=== PATIENT | female | born 1940 | race Caucasian/White ===

== ENCOUNTER 2018-10-23 11:15 | Inpatient (IN) | payer OTHER ==
[~2018-10-23] VITALS: Ht 149.9 cm; Wt 41.3 kg
[~2018-10-23 11:15] MED LIST: ALLO100T21 PO; AMLODIPIN; CARV25TA PO; DULO60EC PO; LANTUS SUBQ; LORATIDINE; MOME0.051; MONT10TA35 PO; OMEP20EC9 PO; OMEPRAZOLE; [UNRECOGNIZED DRUG - CODE] PO
[2018-10-23 11:24] VITALS: BP 187/67
--- NOTE | 2018-10-23 13:21 | NUR ---
pt ambulated to er bed 04
--- NOTE | 2018-10-23 13:35 | NUR ---
PATIENT PRESENTS TO ED WITH C/O WEAKNESS AND SNCOPE, REFERRALED BY PCP, PT IS AAOX4, NO S/S OF DISTRESS, DISMINISHED LUNG SOUNDS, STATED TINGLING CHEST PAIN COME AND GOES 2/10,ELEVATED BP NOTED, ABDOMEN SORE2/10, HAD N/V/D YESTERDAY, POOR APETITE, INCONTINENT B&B'S, ABLE TO MOVE ALL EXTREMITIES, SLIGHT WEAKNESS NOTED, SKIN IS WARM AND DRY TO TOUGH, OPEN WOUND TO RIGHT LOWER LEG NOTED. HX OF HTN, CHF, DM. PATIENT POSITIONED FOR COMFORT; HOB ELEVATED; BEDRAILS UP X2; BED DOWN. ER MD MADE AWARE OF PT STATUS.
--- NOTE | 2018-10-23 13:37 | NUR ---
Patient being evaluated by DR. DAHL at bedside.
[2018-10-23] MEDS ORDERED: NACL 0.9% 1,000 ML IV SCH (13:46)
[2018-10-23] MEDS ORDERED: ONDANSETRON 4 MG/2 ML VIAL IVP ONE (13:50)
--- NOTE | 2018-10-23 13:55 | NUR ---
PT IS TAKEN TO CT.
--- NOTE | 2018-10-23 14:20 | NUR ---
IV INSERTED TO LEFT AC, NS BOLUS STARTED.
--- NOTE | 2018-10-23 14:28 | NUR ---
US AT BEDSIDE
[2018-10-23 14:33] LABS: APPEARANCE,URINE CLEAR (CLEAR); BILIRUBIN,URINE NEGATIVE (NEGATIVE); BLOOD, URINE TRACE-I (NEGATIVE); COLOR,URINE YELLOW (YELLOW); LEUKOCYTE ESTERASE ,URINE 1+ (NEGATIVE); NITRITE, URINE NEGATIVE (NEGATIVE); UGLUCOSE NEGATIVE (NEGATIVE)
[2018-10-23 14:35] LABS: BASOPHILS # (AUTO) 0.1 K/uL (0.00-0.22); BASOPHILS % (AUTO) 1.1 % (0.0-2.0); EOSINOPHILS # (AUTO) 0.2 K/uL (0-0.4); EOSINOPHILS % (AUTO) 4.4 % (0.0-4.0); HEMATOCRIT 30.4 % (36-48); HEMOGLOBIN 10.3 g/dL (12.0-16.0); LYMPHOCYTES # (AUTO) 0.8 K/uL (2.5-16.5); LYMPHOCYTES % (AUTO) 15.4 % (20.5-51.1); MEAN CORPUSCULAR HEMOGLOBIN 32 pg (27-31); MEAN CORPUSCULAR HGB CONC 34 g/dL (33-37); MONOCYTES # (AUTO) 0.3 K/uL (0.8-1.0); MONOCYTES % (AUTO) 6.8 % (1.7-9.3); NEUTROPHILS # (AUTO) 3.7 K/uL (1.8-7.7); NEUTROPHILS % (AUTO) 72.3 % (42.2-75.2); PLATELET COUNT (AUTO) 199 K/uL (140-450); RED CELL DISTRIBUTION WIDTH 13.3 % (11.6-13.7); WHITE BLOOD COUNT (AUTO) 5.1 K/uL (4.8-10.8)
[2018-10-23 14:41] LABS: WBC,URINE 20-60 /HPF (0-5)
--- NOTE | 2018-10-23 15:00 | NUR ---
PT IS RESTING IN BED, IV BOLUS COMPLETED, NO S/S OF DISTRESS, BP 190/64, DR. DAHL MADE AWARE.
[2018-10-23 15:09] LABS: ALBUMIN 3.4 g/dL (3.4-5.0); AMYLASE 48 U/L (25-115); ANION GAP 15.1 (8-16); ASPARTATE AMINOTRANSFERASE 18 U/L (15-37); CARBON DIOXIDE 23.1 mmol/L (21-32); CHLORIDE 105 mmol/L (98-107); CREATININE 1.8 mg/dL (0.6-1.3); GLUCOSE 116 mg/dL (74-106); LIPASE 214 U/L (73-393); MAGNESIUM 2.1 mg/dL (1.8-2.4); POTASSIUM 4.2 mmol/L (3.5-5.1); SODIUM SERUM 139 mmol/L (136-145); TOTAL BILIRUBIN 0.3 mg/dL (0.0-1.0)
[2018-10-23 15:14] LABS: PROTHROMBIN TIME 9.2 secs (10.8-13.4)
[2018-10-23 15:22] LABS: UREA NITROGEN, BLOOD 32 mg/dL (7-18)
[2018-10-23] MEDS ORDERED: cloNIDine 0.1 MG TAB PO ONE (15:50)
--- NOTE | 2018-10-23 16:13 | NUR ---
BP MEDICATION GIVEN, WILL CONTINUE TO MONITOR.
--- NOTE | 2018-10-23 16:30 | NUR ---
DR. DAHL EXPLAINED THE FINDING TO PT, AND NEED TO ADMIT TO HOSPITAL, PT VERBALIZED UNDERSTANDING AND AGREED.
--- NOTE | 2018-10-23 17:00 | NUR ---
PT IS RESTING IN BED, NO S/S OF DISTRESS, DENIES PAIN. STATED FEELING BETTER.
[2018-10-23] MEDS ORDERED: LABETALOL 100 MG/20 ML VIAL IVP ONE (17:05)
--- NOTE | 2018-10-23 17:15 | NUR ---
PT'S BP 207/65 ONE HOUR AFTER CLONIDINE GIVEN, DR. DAHL MADE AWARE, WILL FOLLOW UP WITH NEW ORDERS.
[2018-10-23] MEDS ORDERED: DEXTROSE 50% 50 ML SYR IVP PRN (17:50)
[2018-10-23] MEDS ORDERED: ONDANSETRON 4 MG/2 ML VIAL IVP PRN (17:50)
[2018-10-23] MEDS ORDERED: cloNIDine 0.1 MG TAB PO PRN (17:55)
[2018-10-23] MEDS ORDERED: amLODIPine 5 MG TAB PO SCH (18:00)
--- NOTE | 2018-10-23 18:21 | NUR ---
Pt transferred to Tele via BED WITH SOY VASQUEZ.
--- NOTE | 2018-10-23 18:25 | NUR ---
Pt transferred to Tele ROOM 124B via [facility], [facility] ALL BELONGINGS GOES WITH PT, PT IS IN STABEL CONDITION AT THIS TIME. .
--- NOTE | 2018-10-23 18:25 | NUR ---
RECEIVED BEDSIDE REPORT FROM ER NURSE. PATIENT IS AWAKE, ALERT AND ORIENTEDX4. NO SIGNS OF DISTRESS ON RA. SKIN HAS R ARM SKIN TEAR AND R LEG ABRASION. FALL RISK PROTOCOL IN PLACE D/T DX SYNCOPE AND HTN. VITALS ARE B/P 136/49 HR 63 98% RA 98.2 TEMP AND RR 16. MRSA NARES SWAB DONE. PATIENT IS AMBULATORY W ASSIST. PATIENT STATES SHE USES A DIAPER AT HOME. IV ON L AC 20G SL. CLEAN, DRY AND INTACT. TELE MONITOR IN PLACE. BED IN LOW POSITION. CALL LIGHT WITHIN REACH. WILL CONTINUE TO MONITOR THE PATIENT
--- NOTE | 2018-10-23 19:05 | NUR ---
GAVE BEDSIDE REPORT TO PRESS TENDER NURSE. PATIENT ENDORSED IN STABLE CONDITION. TOOK PHOTOS OF WOUNDS R ARM SKIN TEAR, L LEG ABRASION, TOLD MP TO PRINT FORMS ON DEMAND. Addendum: 10/23/18 at 1950 by Janis Rowell RN ENDORSED TO KISSSOURAV THAT I DID NOT ADMINISTER THE ALEX AMLODIPINE AT 1800. TOLD HER TO CALL DR HLOBROOK IF HE WANTS TO GIVE IT OR HOLD, B/P MAY DROP TOO LOW. ALSO TOLD HER TO Ask about lovenox and heparin order and lantus, pharmacy to question the dosing
[2018-10-23 19:30] VITALS: BP 101/53
--- NOTE | 2018-10-23 19:30 | NUR ---
RECEIVED PT IN STABLE CONDITION FROM SOY ESCOTO PT IS AWAKE,ALERT AND ORIENTED X4. ON TELE MONITOR . WITH NO C/O ANY DISCOMFORT NOR PAIN NOTED. ORIENTED TO HOSPITAL ROUTINES. CALL LIGHT PLACED WITHIN EASY REACH. BED ON LOW POSITION. BED ALARM ON. SIDE RAILS UP X2. PLAN OF CARE DISCUSSED AND VERBALIZED UNDERSTANDING. HL ON LT AC #20/ CLEAR AND PATENT. POSITIONED COMFORTABLY IN BED. WILL FOLLOW UP ADMIT ORDERS.WILL CONTINUE TO MONITOR.
[2018-10-23] MEDS: CARVEDILOL 12.5 MG TAB PO SCH (21:00)
[2018-10-23] MEDS ORDERED: INSULIN LANTUS 100 UNITS/ML 10 ML VIAL SUBQ SCH (21:00)
--- NOTE | 2018-10-23 21:09 | NUR ---
PAGED DR. HOLBROOK TO CLARIFY LOVENOX AND HEPARIN SUBQ ORDER. CALLED BACK AND HE SAID TO DISCONTINUE LOVENOX. ALSO HE MADE AWARE THAT PT HASN'T BEEN TAKING LANTUS AT HOME. BS TONIGHT IS 182. HE SAID JUST HOLD LANTUS TONIGHT BUT GIVE THE COVERAGE.
[2018-10-23] MEDS: BLOOD GLUCOSE MONITORING 1 DEV DEV FS SCH (21:49)
[2018-10-23] MEDS: INSULIN LISPRO SLIDING SCALE 100 UNITS/ML VIAL SUBQ PRN (21:50)
--- NOTE | 2018-10-23 23:00 | NUR ---
PT IS ASLEEP. NO S/S OF ANY DISCOMFORT NOTED.
[2018-10-23 23:12] LABS: CREATINE KINASE MB 2.1 ng/mL (0-3.6)
[2018-10-24] VITALS: BP 134/39
[2018-10-24 00:02] VITALS: BP 119/37
[2018-10-24 00:04] VITALS: BP 142/73
--- NOTE | 2018-10-24 00:04 | NUR ---
VITAL SIGNS TAKEN. NO DIZZINESS NOTED. NO DISCOMFORT AT THIS TIME. CALL LIGHT PLACED WITHIN REACH.
--- NOTE | 2018-10-24 02:00 | NUR ---
MADE ROUNDS. PT ASLEEP. NO S/S OF ANY DISCOMFORT NOR PAIN NOTED.BED ALARM STILL ON FOR SAFETY.
[2018-10-24 04:10] VITALS: BP 146/44
--- NOTE | 2018-10-24 04:30 | NUR ---
ASSISTED UP TO THE BATHROOM. NO DIZZINESS NOTED.
[2018-10-24] MEDS ORDERED: PANTOPRAZOLE 40 MG TABEC PO SCH (06:30)
[2018-10-24] MEDS: BLOOD GLUCOSE MONITORING 1 DEV DEV FS SCH ×2 (06:32→11:58)
--- NOTE | 2018-10-24 06:32 | NUR ---
BLOOD SUGAR THIS AM RESULT 139. NO INSULIN NEEDED.
[2018-10-24 06:50] LABS: BASOPHILS % (AUTO) 1.1 % (0.0-2.0); EOSINOPHILS # (AUTO) 0.2 K/uL (0-0.4); EOSINOPHILS % (AUTO) 4.7 % (0.0-4.0); HEMATOCRIT 27.4 % (36-48); HEMOGLOBIN 9.5 g/dL (12.0-16.0); LYMPHOCYTES # (AUTO) 0.6 K/uL (2.5-16.5); LYMPHOCYTES % (AUTO) 13.6 % (20.5-51.1); MEAN CORPUSCULAR HEMOGLOBIN 33 pg (27-31); MEAN CORPUSCULAR HGB CONC 35 g/dL (33-37); MEAN CORPUSCULAR VOLUME 94.9 fL (80-94); MONOCYTES # (AUTO) 0.3 K/uL (0.8-1.0); MONOCYTES % (AUTO) 7.7 % (1.7-9.3); NEUTROPHILS # (AUTO) 3.1 K/uL (1.8-7.7); NEUTROPHILS % (AUTO) 72.9 % (42.2-75.2); PLATELET COUNT (AUTO) 183 K/uL (140-450); RED BLOOD CELL COUNT(AUTO) 2.88 MIL/uL (4.20-5.40); RED CELL DISTRIBUTION WIDTH 13.2 % (11.6-13.7); WHITE BLOOD COUNT (AUTO) 4.3 K/uL (4.8-10.8)
[2018-10-24 07:30] LABS: ALBUMIN 2.7 g/dL (3.4-5.0); ANION GAP 12.3 (8-16); ASPARTATE AMINOTRANSFERASE 18 U/L (15-37); CARBON DIOXIDE 23.2 mmol/L (21-32); CHLORIDE 107 mmol/L (98-107); CREATININE 1.8 mg/dL (0.6-1.3); GLUCOSE 134 mg/dL (74-106); POTASSIUM 4.5 mmol/L (3.5-5.1); SODIUM SERUM 138 mmol/L (136-145); TOTAL BILIRUBIN 0.3 mg/dL (0.0-1.0); UREA NITROGEN, BLOOD 29 mg/dL (7-18)
--- NOTE | 2018-10-24 07:38 | NUR ---
ENDORSED PT IN STABLE CONDITION TO AM NURSE.
--- NOTE | 2018-10-24 07:39 | NUR ---
Received report from pm nurse Dinora. Pt resting in bed, aaox4, verbally responsive, no c/o discomfort, no signs of distress. Call light within reach.
[2018-10-24 07:42] LABS: CREATINE KINASE MB 1.4 ng/mL (0-3.6)
[2018-10-24 08:00] VITALS: BP 166/54
--- NOTE | 2018-10-24 08:50 | NUR ---
PATIENT HAS BEEN SCREENED AND CATEGORIZED HIGH NUTRITION RISK. PATIENT WILL BE SEEN WITHIN 1-2 DAYS OF ADMISSION. 10/24/18-10/25/[address]
[2018-10-24] MEDS ORDERED: MONTELUKAST SODIUM 10 MG TAB PO SCH (09:00)
[2018-10-24] MEDS ORDERED: ASPIRIN 81 MG TAB.CHEW PO SCH (09:00)
[2018-10-24] MEDS ORDERED: ALLOPURINOL 100 MG TAB PO SCH (09:00)
[2018-10-24] MEDS ORDERED: DULoxetine 30 MG CAPDR PO SCH (09:00)
[2018-10-24] MEDS ORDERED: ENOXAPARIN 30 MG/0.3 ML SYR SUBQ SCH (09:00)
[2018-10-24] MEDS ORDERED: amLODIPine 5 MG TAB PO SCH (09:00)
[2018-10-24] MEDS: CARVEDILOL 12.5 MG TAB PO SCH (09:28)
[2018-10-24] MEDS ORDERED: AMLO5TAB PO (09:46)
[2018-10-24] MEDS ORDERED: SIMV20TA1 PO (09:46)
[2018-10-24] MEDS: INSULIN LISPRO SLIDING SCALE 100 UNITS/ML VIAL SUBQ PRN (12:18)
[2018-10-24] MEDS ORDERED: PNEUMOCOCCAL VACCINE 23 MCG/0.5 ML VIAL IMVAC SCH (13:35)
[2018-10-24 14:07] VITALS: BP 138/46
--- NOTE | 2018-10-24 14:30 | NUR ---
All written & verbal instructions provided to pt. Able to verbalize understanding. Pt c/o feeling jittery. Fingerstick glucose = 47g/dl. 2 boxes of orange juice given po. Will recheck.
--- NOTE | 2018-10-24 15:00 | NUR ---
Fingerstick glucose rechecked = 104. Pt states she feels fine & ready to go home. Left ac IV discontinued. Pt able to dress to her personal clothes independently.
--- NOTE | 2018-10-24 15:10 | NUR ---
Pt discharged at this time to home. Able to amb off unit with steady gait, no c/o discomfort, aaox4 with good safety judgment. Pt left by herself via private car.
[2018-10-25] MEDS ORDERED: ATORVASTATIN 20 MG TAB PO SCH (09:00)
== END 2018-10-24 15:10 | disposition home or self-care (01) | DRG 74 ==
LOC: MED 11:15 → MTU 17:52
PROVIDERS: ADMIT Internal Medicine; ATTEND Internal Medicine
PROC: 3E0234Z Introduction of Serum, Toxoid and Vaccine into Muscle, Percutaneous Approach (ICD-10-PCS; principal; 2018-10-24)
DX: G90.8 Other disorders of autonomic nervous system (principal); I13.0 Hypertensive heart and chronic kidney disease with heart failure and stage 1 through stage 4 chronic kidney disease, or unspecified chronic kidney disease; I65.23 Occlusion and stenosis of bilateral carotid arteries; J45.909 Unspecified asthma, uncomplicated; I50.9 Heart failure, unspecified; E11.65 Type 2 diabetes mellitus with hyperglycemia; I35.1 Nonrheumatic aortic (valve) insufficiency; I25.10 Atherosclerotic heart disease of native coronary artery without angina pectoris; N18.9 Chronic kidney disease, unspecified; E11.22 Type 2 diabetes mellitus with diabetic chronic kidney disease; F17.210 Nicotine dependence, cigarettes, uncomplicated; Z88.5 Allergy status to narcotic agent; Z88.8 Allergy status to other drugs, medicaments and biological substances; Z91.041 Radiographic dye allergy status; Z79.4 Long term (current) use of insulin; Z79.899 Other long term (current) drug therapy; Z90.49 Acquired absence of other specified parts of digestive tract; Z95.1 Presence of aortocoronary bypass graft; Z98.42 Cataract extraction status, left eye; Z98.41 Cataract extraction status, right eye; I25.2 Old myocardial infarction; Z23 Encounter for immunization
CPT/HCPCS: 36415; 70450; 71045; 80053; 81001; 82150; 82550; 82553; 82948; 83690; 83735; 84484; 85025; 85379; 85610; 85730; 86886; 86900; 86901; 87081; 87086; 87186; 90732; 93005; 93880; 96361; 96374; 96375; 97530; 99285; G0378; J1644; J1815; J2405; J3490; Q0092

== ENCOUNTER 2019-08-10 11:24 | Emergency (ER) | payer OTHER ==
[~2019-08-10] VITALS: Ht 149.9 cm; Wt 39.2 kg
[~2019-08-10 11:24] MED LIST changes: +AMLO5TAB PO; -AMLODIPIN; -OMEPRAZOLE; +SIMV20TA1 PO
[2019-08-10 12:08] VITALS: BP 162/76
--- NOTE | 2019-08-10 12:14 | NUR ---
Pt placed in ER lobby to wait for available bed.
--- NOTE | 2019-08-10 12:40 | NUR ---
Patient ambulated to bed 9. RN evaluating patient at bedside.
--- NOTE | 2019-08-10 13:34 | NUR ---
78/M PRESENTS TO ED, C/O BLE EDEMA/PAIN, X1 MONTH. PT WAS REFERRED HERE BY PT'S PCP. PT DENIES CP, SOB, OR COUGH AT THIS TIME. PT AWAKE AND ALERT, SKIN NORMAL COLOR LOOSE WARM AND DRY, SPO2 99% ON RA, RR 18 EVEN AND UNLABORED. BP 189/81, HR 77. LUNG SOUNDS CLEAR BL. BLE PITTING EDEMA +2, TENDER TO TOUCH. HX CHF, TRIPLE BYPASS (2007), HTN, GERD, ASTHMA, HERNIA, GASTRIC ULCER.
[2019-08-10 14:36] LABS: BASOPHILS # (AUTO) 0.1 K/uL (0.00-0.22); BASOPHILS % (AUTO) 0.9 % (0.0-2.0); EOSINOPHILS # (AUTO) 0.1 K/uL (0-0.4); EOSINOPHILS % (AUTO) 1.2 % (0.0-4.0); HEMATOCRIT 30.4 % (36-48); HEMOGLOBIN 10.3 g/dL (12.0-16.0); LYMPHOCYTES # (AUTO) 0.7 K/uL (2.5-16.5); LYMPHOCYTES % (AUTO) 12.2 % (20.5-51.1); MEAN CORPUSCULAR HEMOGLOBIN 32 pg (27-31); MEAN CORPUSCULAR HGB CONC 34 g/dL (33-37); MEAN CORPUSCULAR VOLUME 95.5 fL (80-94); MONOCYTES # (AUTO) 0.3 K/uL (0.8-1.0); MONOCYTES % (AUTO) 4.7 % (1.7-9.3); NEUTROPHILS # (AUTO) 4.7 K/uL (1.8-7.7); PLATELET COUNT (AUTO) 277 K/uL (140-450); RED BLOOD CELL COUNT(AUTO) 3.19 MIL/uL (4.20-5.40); RED CELL DISTRIBUTION WIDTH 13.8 % (11.6-13.7); WHITE BLOOD COUNT (AUTO) 5.8 K/uL (4.8-10.8)
[2019-08-10 14:45] LABS: ANION GAP 10.7 (8-16); CARBON DIOXIDE 28.6 mmol/L (21-32); CHLORIDE 101 mmol/L (98-107); CREATININE 2.1 mg/dL (0.6-1.3); GLUCOSE 106 mg/dL (74-106); POTASSIUM 3.3 mmol/L (3.5-5.1); SODIUM SERUM 137 mmol/L (136-145); UREA NITROGEN, BLOOD 27 mg/dL (7-18)
[2019-08-10 14:51] LABS: ALBUMIN 1.9 g/dL (3.4-5.0); ASPARTATE AMINOTRANSFERASE 21 U/L (15-37); TOTAL BILIRUBIN 0.4 mg/dL (0.0-1.0)
--- NOTE | 2019-08-10 16:18 | NUR ---
Patient discharged with v/s stable. Written and verbal after care instructions given and explained. Patient alert, oriented and verbalized understanding of instructions. Ambulatory with steady gait. All questions addressed prior to discharge. ID band removed. Patient advised to follow up with PMD. Rx of LASIX 20 MG given. Patient educated on indication of medication including possible reaction and side effects. Opportunity to ask questions provided and answered.
[2019-08-10 16:19] VITALS: BP 149/74
== END 2019-08-10 16:18 | disposition home or self-care (01) ==
LOC: MED 11:24
DX: R60.9 Edema, unspecified (principal); J45.909 Unspecified asthma, uncomplicated; E11.9 Type 2 diabetes mellitus without complications; K21.9 Gastro-esophageal reflux disease without esophagitis; I10 Essential (primary) hypertension; F03.90 Unspecified dementia, unspecified severity, without behavioral disturbance, psychotic disturbance, mood disturbance, and anxiety; Z79.899 Other long term (current) drug therapy; Z88.5 Allergy status to narcotic agent; Z88.8 Allergy status to other drugs, medicaments and biological substances; Z79.4 Long term (current) use of insulin
CPT/HCPCS: 36415; 71045; 80053; 83880; 85025; 93971; 99284; Q0092